=== PATIENT | male | born 1990 | race Caucasian/White ===

== ENCOUNTER → 2022-02-01 12:25 | Outpatient (BNVA) | payer OTHER, SELFPAY | PROVIDERS: PCP Internal Medicine; Referring Provider Internal Medicine; Visit Provider Physician Assistant Surgical | DX: Z13.89 Encounter for screening for other disorder (principal) ==

== ENCOUNTER → 2022-03-08 08:12 | Outpatient (BNVA) | payer OTHER, SELFPAY | PROVIDERS: PCP Internal Medicine; Visit Provider Dietitian, Registered | DX: E66.01 Morbid (severe) obesity due to excess calories (principal); E11.9 Type 2 diabetes mellitus without complications | CPT/HCPCS: 97802 ==

== ENCOUNTER → 2022-03-14 08:05 | Outpatient (BNVA) | payer OTHER, SELFPAY | PROVIDERS: PCP Internal Medicine; Referring Provider Physician Assistant Surgical; Visit Provider Dietitian, Registered | DX: Z13.89 Encounter for screening for other disorder (principal) ==

== ENCOUNTER 2022-04-01 09:05 | Outpatient (REF) | payer OTHER, SELFPAY ==
--- NOTE | ~2022-04-01 | FL_ITS ---
EXAMINATION: XR FLUOROSCOPY UPPER GI WITH AIR CLINICAL INFORMATION: Morbid/severe obesity due to excess calories. COMPARISON: None TECHNIQUE: Routine upper GI air-contrast study was performed in upright and lying position. FINDINGS: Following oral administration of thick barium and effervescent granules there is normal propagation bolus from the oral cavity through the pharynx, esophagus into stomach without any evidence of obstruction, narrowing or stricture. On placing patient supine and prone lying the course, caliber and peristalsis of the stomach and the duodenal bulb and this CT is normal. The mucosal pattern of the esophagus, stomach and the duodenum is normal. FLUOROSCOPY TIME: 1.4 minutes DOSE AREA PRODUCT: 34.798 uGy-m2 (microgray-meter squared) FL/FL upper GI w air IMPRESSION: Unremarkable upper GI air-contrast study.
--- NOTE | ~2022-04-01 | US_ITS ---
EXAMINATION: US COMPLETE ABDOMEN WITH LIVER ELASTOGRAPHY CLINICAL INFORMATION: Morbid obesity COMPARISON: None. TECHNIQUE: Real-time imaging of the abdominal viscera. Noninvasive ultrasound liver fibrosis assessment is performed using Virgie ElastPQ point quantification shear wave elastography (2D-SWE) with a C5-2 MHz transducer. Multiple elastography samples are obtained. FINDINGS: PANCREAS: Normal. The visualized pancreatic head and body are normal in appearance. The remainder of the pancreas is obscured from visualization by the overlying bowel gas. ABDOMINAL AORTA: The proximal, middle, and distal aortic segments are normal in caliber. INFERIOR VENA CAVA: Visualized portions are normal. LIVER: Normal. The liver demonstrates normal size and contour. Diffuse increased hepatic echogenicity.. No focal lesion or intrahepatic biliary duct dilatation. The right lobe measures 19.6 cm in length. The left lobe measures 12.8 cm in length. Portal flow is towards the liver (hepatopetal). Shear wave liver elastography median stiffness is 1.27 m/s (reference: normal median stiffness is 1.3 m/s or less). IQR/median stiffness to assess sampling precision is 0.08 (reference: good quality data set is IQR/median stiffness of 0.15 or less). GALLBLADDER: Normal. The gallbladder is physiologically distended without evidence of stones, sludge, polyps, wall thickening or pericholecystic fluid. COMMON BILE DUCT: Normal in caliber measuring 0.3 cm in diameter. RIGHT KIDNEY: Normal. No hydronephrosis. No renal calculi or focal parenchymal lesions. The kidney measures 11.5 cm in maximum dimension. LEFT KIDNEY: Normal. No hydronephrosis. No renal calculi or focal parenchymal lesions. The kidney measures 13.4 cm in maximum dimension. SPLEEN: Normal. The spleen measures 12.3 cm in maximum dimension. FREE FLUID: None. US/US abdomen comp w elastography IMPRESSION: 1. Diffuse hepatic steatosis. 2. Liver elastography: Measurements are consistent with a high probability of normal liver stiffness. REFERENCE: Society of Radiologists in Ultrasound Liver Stiffness Thresholds (2020): LIVER STIFFNESS THRESHOLDS: *Liver Stiffness equal or less than 1.3 m/s: High probability of being normal. *Liver Stiffness less than 1.7 m/s: In the absence of other known clinical signs, rules out compensated advanced chronic liver disease. *Liver Stiffness 1.7-2.1 m/s: Suggestive of compensated advanced chronic liver disease but need further test for confirmation. *Liver Stiffness over 2.1 m/s: Rules in compensated advanced chronic liver disease. *Liver Stiffness over 2.4 m/s: Suggestive of clinically significant portal hypertension. QUALITY OF DATA SET: *IQR/Median value equal or less than 0.15 implies a quality data set. *IQR/Median value over 0.15 implies a poor quality data set. SIGNIFICANT CHANGE FROM PRIOR EXAM: Significant change if liver stiffness measurement is 10% or greater from prior exam. OTHER CONSIDERATIONS: The stage of liver fibrosis may be overestimated in the setting of acute hepatitis, liver inflammation, elevated liver function tests, hepatic vascular congestion, obstructive cholestasis, non-fasting state, and infiltrative diseases such as amyloidosis and lymphoma. In some patients with NAFLD, the liver stiffness thresholds for compensated advanced chronic liver disease may be lower. In causes other than viral hepatitis and NAFLD, liver stiffness thresholds are not well established.
--- NOTE | ~2022-04-01 | XR_ITS ---
EXAMINATION: XR CHEST CLINICAL INFORMATION: Morbid obesity COMPARISON: None TECHNIQUE: 2 views of the chest were obtained. FINDINGS: Normal symmetric lung volumes. No parenchymal consolidation. No pleural effusion. No pneumothorax. Cardiomediastinal silhouette and pulmonary vascularity are within normal limits. No acute osseous abnormalities. XR/XR chest 2V IMPRESSION: Unremarkable examination.
--- NOTE | 2022-04-01 10:10 | ECG_ITS ---
Test Reason : e66.01 Blood Pressure : / mmHG Vent. Rate : 066 BPM Atrial Rate : 066 BPM P-R Int : 180 ms QRS Dur : 102 ms QT Int : 390 ms P-R-T Axes : 036 010 037 degrees QTc Int : 408 ms Normal sinus rhythm Normal ECG No previous ECGs available Referred By: Hever Toledo Electronically Signed By:NICOLA LOBATO
== END 2022-04-01 09:06 | disposition home or self-care (01) ==
LOC: HO.US 09:05
PROVIDERS: PCP Nurse Practitioner Family; Visit Provider Physician Assistant Surgical
DX: Z01.818 Encounter for other preprocedural examination (principal); E66.01 Morbid (severe) obesity due to excess calories; K21.9 Gastro-esophageal reflux disease without esophagitis
CPT/HCPCS: 71046; 74246; 76705; 76981; 93005

== ENCOUNTER → 2022-09-03 09:00 | Outpatient (BNVA) | payer OTHER, SELFPAY | PROVIDERS: PCP Internal Medicine; Referring Provider Physician Assistant; Visit Provider Counselor Mental Health | DX: F43.20 Adjustment disorder, unspecified (principal); E66.01 Morbid (severe) obesity due to excess calories | CPT/HCPCS: 90791 ==

== ENCOUNTER → 2022-09-13 09:21 | Outpatient (BNVA) | payer OTHER, SELFPAY | PROVIDERS: PCP Internal Medicine; Referring Provider Physician Assistant; Visit Provider Dietitian, Registered | DX: E66.01 Morbid (severe) obesity due to excess calories (principal) | CPT/HCPCS: 97803 ==

== ENCOUNTER 2022-09-14 09:22 | Outpatient (REF) | payer OTHER, SELFPAY ==
[2022-09-14 09:44] LABS: MANUAL DIFF FLAG NO
[2022-09-14 10:37] LABS: Basophils Percent Auto 0.6 % (0-2); Eosinophils Absolute Auto 0.1 X10*3/uL (0.0-0.4); Eosinophils Percent Auto 2.1 % (0-4); Hematocrit 45.2 % (42.0-52.0); Hemoglobin 15.1 g/dl (14.0-18.0); Imm Gran Abs Auto 0.01 X10*3/uL (0.00-0.03); Imm Gran Pct Auto 0.2 % (0.0-0.4); Lymphocytes Absolute Auto 1.7 X10*3/uL (1.2-4.9); Lymphocytes Percent Auto 32.1 % (20-40); Mean Corpuscular HGB Conc 33.4 g/dl (31.0-36.0); Mean Corpuscular Volume 83.9 fL (80.0-98.0); Mean Platelet Volume 9.8 fL (9.4-12.4); Monocytes Absolute Auto 0.4 X10*3/uL (0.1-1.2); Platelet Count 312 X10*3/uL (160-400); Red Blood Count 5.39 X10*6/uL (4.60-5.80); Red Cell Distribution Width 12.6 % (11.0-16.0); White Blood Count 5.2 X10*3/uL (4.8-10.8)
[2022-09-14 10:44] LABS: Estimated Average Glucose 111 mg/dL; Hemoglobin A1C 133.7119 umol/L; Hemoglobin A1c % 5.5 %
[2022-09-14 11:09] LABS: Alanine Aminotransferase 57 U/L (0-40); Albumin Level 4.9 g/dL (3.5-5.0); Alkaline Phosphatase 77 U/L (39-117); Anion Gap 19 (12-20); Aspartate Amino Transferase 41 U/L (5-37); Bilirubin Total 0.6 mg/dL (0.0-1.0); Blood Urea Nitrogen 13 mg/dL (9-16); C Reactive Protein 0.52 mg/dL (< or = 0.50); Calcium 10.1 mg/dL (8.4-10.2); Carbon Dioxide 22 mmol/L (22-29); Chloride 103 mmol/L (96-108); Cholesterol 234 mg/dL; Estimated Glomerular Filt Rate > 60; Glucose Random 98 mg/dL (60-115); HDL Cholesterol 35 mg/dL; Iron 105 mcg/dL (45-160); LDL Cholesterol Calculated 173 mg/dl; Percent Iron Saturation 24 % (15-50); Potassium 4.6 mmol/L (3.3-5.1); Sodium 139 mmol/L (135-145); Total Iron Binding Capacity 441 mcg/dL (228-428); Total Protein 8.4 g/dL (6.5-8.0); Triglycerides 134 mg/dL; Unsaturated Iron Binding 336 ug/dL
[2022-09-14 11:33] LABS: Ferritin 222 ng/mL (20-250); TSH reflex Free T4 3.79 uIU/mL (0.32-4.0); Vitamin D 25-OH Total 11.8 ng/mL (>30)
[2022-09-14 11:41] LABS: Vitamin B12 521 pg/mL (200-900)
[2022-09-17 11:41] LABS: PTHI 34 pg/mL (16-77)
[2022-09-18 15:52] LABS: Zinc 85 mcg/dL (60-130)
[2022-09-19 17:02] LABS: Vitamin A 50 mcg/dL (38-98)
[2022-09-21 03:36] LABS: Vitamin B1 7 nmol/L (8-30)
== END 2022-09-14 09:23 | disposition home or self-care (01) ==
LOC: HO.LAB 09:22
PROVIDERS: Visit Provider Physician Assistant Surgical
DX: E66.01 Morbid (severe) obesity due to excess calories (principal)
CPT/HCPCS: 36415; 80053; 80061; 82306; 82607; 82728; 82746; 83036; 83540; 83970; 84425; 84443; 84590; 84630; 85025; 86140

== ENCOUNTER 2022-09-20 15:58 | Outpatient (REF) | payer OTHER, SELFPAY ==
[2022-09-21 15:15] LABS: H Pylori Breath Test Negative (Negative)
== END 2022-09-20 15:59 | disposition home or self-care (01) ==
LOC: HO.LNP 15:58
PROVIDERS: Visit Provider Physician Assistant Surgical
DX: E66.01 Morbid (severe) obesity due to excess calories (principal); Z11.0 Encounter for screening for intestinal infectious diseases
CPT/HCPCS: 83013

== ENCOUNTER 2022-12-09 07:57 | Outpatient (REF) | payer OTHER, SELFPAY ==
[2022-12-09 10:42] LABS: Cholesterol 199 mg/dL; HDL Cholesterol 35 mg/dL; LDL Cholesterol Calculated 126 mg/dl; Triglycerides 194 mg/dL
[2022-12-09 10:49] LABS: Syphilis Screen Nonreactive (Nonreactive)
[2022-12-09 10:50] LABS: HIV AB/AG Nonreactive (Nonreactive); HIV Num 1 0.05 S/CO (0.00-0.99); Hepatitis B Surface Antigen Negative (Negative); ~Hepatitis C Antibody Nonreactive (Nonreactive)
== END 2022-12-09 07:58 | disposition home or self-care (01) ==
LOC: HO.LAB 07:57
PROVIDERS: Absent Provider Advanced Practice Midwife; PCP Internal Medicine; Visit Provider Physician Assistant Medical
DX: Z11.9 Encounter for screening for infectious and parasitic diseases, unspecified (principal); Z11.4 Encounter for screening for human immunodeficiency virus [HIV]; E78.5 Hyperlipidemia, unspecified
CPT/HCPCS: 36415; 80061; 86780; 86803; 87340; 87389

== ENCOUNTER → 2023-01-31 11:12 | Outpatient (BNVA) | payer OTHER, SELFPAY | PROVIDERS: PCP Internal Medicine; Visit Provider Physician Assistant | DX: Z13.89 Encounter for screening for other disorder (principal) ==

== ENCOUNTER → 2023-02-21 09:00 | Outpatient (BNVA) | payer OTHER, SELFPAY | PROVIDERS: PCP Internal Medicine; Visit Provider Physician Assistant | DX: Z13.89 Encounter for screening for other disorder (principal) ==

== ENCOUNTER 2023-09-09 22:16 | Emergency (ER) | payer OTHER, SELFPAY ==
--- NOTE | ~2023-09-09 | US_ITS ---
EXAMINATION: US ABDOMEN LIMITED CLINICAL INFORMATION: Right upper quadrant pain. COMPARISON: Ultrasound exam from 04/01/2022 TECHNIQUE: Real-time imaging of the right upper quadrant abdominal viscera. FINDINGS: PANCREAS: Normal. LIVER: Liver has normal size and contour. The liver parenchyma is chronically hyperechoic, similar compared to 04/01/2022. No evidence of focal liver lesion or intrahepatic duct dilatation. GALLBLADDER: The gallbladder is collapsed. The evaluation of the gallbladder is extremely limited. The wall of the gallbladder is 0.2 cm thick. No pericholecystic fluid. The lumen of the gallbladder is not adequately evaluated. This examination would not be able to exclude any cholelithiasis. COMMON BILE DUCT: Normal in caliber measuring 0.4 cm in diameter. RIGHT KIDNEY: Normal. No hydronephrosis. No renal calculi or focal parenchymal lesions. The kidney measures 13.5 cm in maximum dimension. FREE FLUID: None. US/US abdomen limited IMPRESSION: * No acute sonographic abnormalities. * Liver is diffusely hyperechoic, suggestive of steatosis, similar compared to 04/01/2022. * The gallbladder is nearly completely collapsed and poorly evaluated. There is no evidence of gallbladder wall thickening or pericholecystic fluid. Unable to exclude any cholelithiasis on this limited evaluation. However, no evidence of biliary tract obstruction.
[2023-09-09 22:22] VITALS: BP 149/67; PULSE 79; RESP 20; TEMP 36.6; O2SAT 98; BMI 56.1
[2023-09-09] MEDS: Ondansetron ODT 4 MG TAB.RAPDIS TRANSLINGU (22:26)
[2023-09-09 23:50] LABS: MANUAL DIFF FLAG NO
[2023-09-09 23:55] LABS: Basophils Absolute Auto 0.1 X10*3/uL (0.0-0.2); Basophils Percent Auto 0.6 % (0-2); Eosinophils Absolute Auto 0.2 X10*3/uL (0.0-0.4); Hematocrit 40.2 % (42.0-52.0); Hemoglobin 13.8 g/dl (14.0-18.0); Imm Gran Abs Auto 0.02 X10*3/uL (0.00-0.03); Imm Gran Pct Auto 0.2 % (0.0-0.4); Lymphocytes Absolute Auto 1.8 X10*3/uL (1.2-4.9); Lymphocytes Percent Auto 22.3 % (20-40); Mean Corpuscular HGB Conc 34.3 g/dl (31.0-36.0); Mean Corpuscular Hemoglobin 28.5 pg (27.0-33.0); Mean Corpuscular Volume 83.1 fL (80.0-98.0); Mean Platelet Volume 9.9 fL (9.4-12.4); Monocytes Absolute Auto 0.7 X10*3/uL (0.1-1.2); Neutrophils Absolute Auto 5.5 x10*3/uL (2.0-8.3); Neutrophils Percent Auto 66.9 % (45-73); Platelet Count 257 X10*3/uL (160-400); Red Blood Count 4.84 X10*6/uL (4.60-5.80); Red Cell Distribution Width 12.3 % (11.0-16.0); White Blood Count 8.2 X10*3/uL (4.8-10.8)
[2023-09-10 00:26] LABS: Alanine Aminotransferase 99 U/L (0-40); Albumin Level 4.2 g/dL (3.5-5.0); Alkaline Phosphatase 77 U/L (39-117); Anion Gap 15 (12-20); Aspartate Amino Transferase 117 U/L (5-37); Bilirubin Direct 0.2 mg/dL (0.0-0.5); Bilirubin Total 0.5 mg/dL (0.0-1.0); Blood Urea Nitrogen 14 mg/dL (9-16); Calcium 9.6 mg/dL (8.4-10.2); Carbon Dioxide 21 mmol/L (22-29); Chloride 107 mmol/L (96-108); Creatinine Clr Calc Pharmacy 163.7; Estimated Glomerular Filt Rate > 60; Glucose Random 111 mg/dL (60-115); Potassium 4.1 mmol/L (3.3-5.1); Sodium 139 mmol/L (135-145); Total Protein 7.6 g/dL (6.5-8.0)
[2023-09-10 04:01] VITALS: BP 137/99; PULSE 66; RESP 18; TEMP 36.8; O2SAT 96
--- NOTE | 2023-09-10 04:10 | PC.NURSE ---
Pt ambulated to stretcher with a steady gait. Pt AOx3, reporting 6/10 intermittent sharp RUQ abdominal pain that radiates to the right shoulder [id number]. Pt reports resolved Nausea after taking zofran, frequent diarrhea, denies vomiting. Pt reports having some chest tightness that has been resolved as of now. Pt reports increase irritation with fried food. Hypoactive bowel sounds noted, tender on palpation. Pt is calm and cooperative, waiting to see provider, aware of plan.
[2023-09-10 06:30] LABS: Lipase 76 U/L (8-78)
[2023-09-10 06:41] VITALS: BP 133/79; PULSE 87; RESP 16; TEMP 36.7; O2SAT 98
--- NOTE | 2023-09-10 07:21 | ED.ABDPAIN ---
HPI - Abdominal Pain General Chief Complaint: Abdominal Pain Stated Complaint: sharp pain shoulder to chest, nausea Time Seen by Provider: 09/10/23 06:12 Source: patient Mode of arrival: ambulatory History of Present Illness HPI narrative: 33-year-old male who reports that he has had intermittent right upper quadrant pain over the past month but states that last night after eating [facility] he began experiencing the pain once again with was associated with nausea but no vomiting and he denies any fevers or chills but states he is still having the pain and has had some mild diarrhea. Related Data Home Medications Medication Instructions Recorded Confirmed albuterol sulfate 90 mcg/actuation 1 puff inhalation Q4H 02/01/22 02/21/23 aerosol inhaler Previous Rx's Medication Instructions Recorded thiamine HCl (vitamin B1) 50 mg 50 mg PO DAILY #30 tabs 09/23/22 tablet cholecalciferol (vitamin D3) 125 125 mcg PO DAILY #90 caps 04/02/23 mcg (5,000 unit) capsule Allergies Allergy/AdvReac Type Severity Reaction Status Date / Time No Known Allergies Allergy Verified 10/14/22 10:09 Review of Systems Review of Systems Pertinent positives and negatives as stated in HPI PMFSH Past Medical History Source: nursing notes reviewed Surgical History No pertinent past surgical history Family History Family History Mother Breast cancer Father No problems noted. Brother No problems noted. Sister No problems noted. Sister No problems noted. Sister No problems noted. Social History Social History Alcohol intake: never Patient Tobacco Use Status: Never used Tobacco Smoked in Last 30 Days: No Use of substances other than those prescribed or required for medical reasons: No Advance Directives: No Advance Directives Information Provided: Yes Physical Exam ED Vital Signs: Vital Signs - 24 hr 09/09/23 22:22 09/10/23 04:01 09/10/23 06:41 Temperature 97.8 F 98.2 F 98.1 F Pulse Rate 79 66 87 Respiratory Rate 20 18 16 Blood Pressure 149/67 H 137/99 H 133/79 Pulse Oximetry 98 96 98 Oxygen Delivery Method Room Air Room Air Room Air BMI result Body Mass Index 56.1 VITAL SIGNS: Reviewed. GENERAL: Elevated BMI, Well developed, well nourished, in no acute distress. HEAD: Normocephalic/atraumatic EYES: PERRLA, EOMI EARS: Ext canals without abnormality NOSE: Nares patent bilateral OROPHARYNX: no oral lesions noted, posterior pharynx clear NECK: Supple, no adenopathy LUNGS: Normal breath sounds. No adventitious sounds or accessory muscle use. SpO2<98> CARDIOVASCULAR: Regular rate and rhythm without noted murmurs ABDOMEN: Soft, right upper quadrant pain without rebound, Crystal's positive, non-distended with bowel sounds. MUSCULOSKELETAL: No tenderness, deformities, or effusions noted on gross inspection. EXTREMITIES: No cyanosis, clubbing or edema. SKIN: Inspection of the skin reveals no rashes NEUROLOGIC: Alert and oriented x 4. Strength and sensation to light touch were grossly intact x 4. Medical Decision Making Medical Decision Making [facility] Narrative: 33-year-old male with history and clinical presentation, DDX: Acute cholecystitis, biliary colic, pancreatitis, gastritis, musculoskeletal pain. I reviewed all investigations and hematologic indices are negative for leukocytosis or left shift, there is no thrombocytopenia and there is a mild normocytic anemia without history or presentation to suggest active bleeding. Chemistry indices are grossly within normal limits without SUREKHA and there is no evidence of electrolyte derangements and there is evidence transaminitis. IV was placed, patient received antiemetics as well as pain medication. Signed out to Dr White: - ultrasound to rule out cholecystitis Differential Diagnosis Differential Diagnoses: The differential diagnosis associated with the presentation includes Please see the discussion above Admission/Observation Consideration of admission/observation: Escalation of care including admission/observation considered Please see the discussion above Lab Data [facility] Lab Attestation statement: I reviewed the patient's lab results. Please see the discussion above 09/09/23 23:46 09/09/23 23:46 Labs: Lab Results 09/09/23 Range/Units 23:46 WBC 8.2 (4.8-10.8) X10*3/uL RBC 4.84 (4.60-5.80) X10*6/uL Hgb 13.8 L (14.0-18.0) g/dl Hct 40.2 L (42.0-52.0) % MCV 83.1 (80.0-98.0) fL MCH 28.5 (27.0-33.0) pg MCHC 34.3 (31.0-36.0) g/dl RDW 12.3 (11.0-16.0) % Plt Count 257 (160-400) X10*3/uL MPV 9.9 (9.4-12.4) fL Immature Gran % (Auto) 0.2 (0.0-0.4) % Neut % (Auto) 66.9 (45-73) % Lymph % (Auto) 22.3 (20-40) % [place] % (Auto) 8.0 (2-11) % Eos % (Auto) 2.0 (0-4) % Baso % (Auto) 0.6 (0-2) % Lymph # (Auto) 1.8 (1.2-4.9) X10*3/uL [place] # (Auto) 0.7 (0.1-1.2) X10*3/uL Eos # (Auto) 0.2 (0.0-0.4) X10*3/uL Baso # (Auto) 0.1 (0.0-0.2) X10*3/uL Abs Immat Gran (auto) 0.02 (0.00-0.03) X10*3/uL Absolute Neuts (auto) 5.5 (2.0-8.3) x10*3/uL Absolute Nucleated RBC 0.000 (0.0-0.012) X10*3/uL Nucleated RBC % (auto) 0.0 (0.0-0.2) /100WBC Sodium 139 (135-145) mmol/L Potassium 4.1 (3.3-5.1) mmol/L Chloride 107 (96-108) mmol/L Carbon Dioxide 21 L (22-29) mmol/L Anion Gap 15 (12-20) BUN 14 (9-16) mg/dL Creatinine 1.02 (0.5-1.4) mg/dL Estim Creat Clear Calc 163.7 Estimated GFR > 60 Random Glucose 111 (60-115) mg/dL Calcium 9.6 (8.4-10.2) mg/dL Total Bilirubin 0.5 (0.0-1.0) mg/dL Direct Bilirubin 0.2 (0.0-0.5) mg/dL AST 117 H (5-37) U/L ALT 99 H (0-40) U/L Alkaline Phosphatase 77 (39-117) U/L Total Protein 7.6 (6.5-8.0) g/dL Albumin 4.2 (3.5-5.0) g/dL Lipase 76 (8-78) U/L Medications Administered Discontinued Medications Generic Name Dose Route Start Last Admin Trade Name Freq PRN Reason Stop Dose Admin Ondansetron HCl 4 mg 09/09/23 22:25 09/09/23 22:26 Ondansetron Odt 4 Mg Tab.Rapdis TRANSLINGU 09/09/23 22:26 4 mg ONCE ONE Administration Discharge Plan Discharge Clinical Impression: Abdominal pain, acute, right upper quadrant Patient Disposition: Still a Patient Prescriptions: No Action thiamine HCl (vitamin B1) 50 mg tablet 50 mg PO DAILY Qty: 30 5RF cholecalciferol (vitamin D3) 125 mcg (5,000 unit) capsule 125 mcg PO DAILY Qty: 90 1RF albuterol sulfate 90 mcg/actuation HFA aerosol inhaler 1 puff inhalation Q4H
[2023-09-10] MEDS: 0.9 % Sodium Chloride 1,000 ML 999 ML IV (07:41)
[2023-09-10] MEDS: Ketorolac Tromethamine 30 MG/ML VIAL 15 MG IVPUSH (07:41)
== END 2023-09-10 11:26 | disposition home or self-care (01) ==
PROVIDERS: Student in an Organized Health Care Education/Training Program; Emergency Provider Emergency Medicine
DX: R10.11 Right upper quadrant pain (principal); K76.0 Fatty (change of) liver, not elsewhere classified; E11.9 Type 2 diabetes mellitus without complications; E66.9 Obesity, unspecified; Z68.43 Body mass index [BMI] 50.0-59.9, adult; Z79.899 Other long term (current) drug therapy
CPT/HCPCS: 36415; 76705; 80048; 80076; 83690; 85025; 96361; 96374; 99284; 99285; J1885

== ENCOUNTER 2023-10-06 22:51 | Emergency (ER) | payer OTHER, SELFPAY ==
--- NOTE | ~2023-10-06 | CT_ITS ---
EXAMINATION: CT ABDOMEN AND PELVIS WITH CONTRAST CLINICAL INFORMATION: Right abdominal pain COMPARISON: None available. TECHNIQUE: Multidetector volumetric images were obtained from the superior aspect of the liver through the pubic symphysis following administration 100 mL of Omnipaque 350 intravenous contrast. Sagittal and coronal reformatted images were obtained on the technologist's workstation. Oral contrast: No This CT examination was performed using dose optimization techniques as appropriate, variously including the following: *Automated exposure control *Adjustment of mA and/or kV according to patient size (this includes techniques or standardized protocols for targeted exams where dose is matched to indication/reason for exam; i.e. extremities or head) *Use of iterative reconstruction technique DLP: 1934 mGy-cm FINDINGS: LUNG BASES: The visualized lung bases are unremarkable. LIVER, GALLBLADDER, AND BILIARY TREE: The liver is normal in size, shape, and attenuation. No focal hepatic lesion or biliary ductal dilatation is present. The gallbladder is unremarkable with no evidence of radiopaque gallstones, gallbladder wall thickening, or obvious pericholecystic inflammatory changes. PANCREAS: Unremarkable. SPLEEN: Unremarkable. ADRENAL GLANDS: Unremarkable. KIDNEYS AND URETERS: Bilateral nephrograms are symmetric. No hydronephrosis or obstructing calculus identified. Small hypodensity off the mid left kidney is too small to characterize. BLADDER: Unremarkable. GASTROINTESTINAL TRACT: No evidence of bowel obstruction or significant wall thickening. The appendix is unremarkable. No free fluid or free air is seen. ABDOMINAL WALL: No significant hernia is appreciated. LYMPH NODES: Normal. VASCULAR: Unremarkable. PELVIC VISCERA: Unremarkable. OSSEOUS STRUCTURES: Degenerative changes are noted in the spine. CT/CT abdomen pelvis w IV con IMPRESSION: No acute findings identified in the abdomen/pelvis.
[2023-10-06 22:55] VITALS: BP 181/108; PULSE 74; RESP 20; TEMP 36.4; O2SAT 97; BMI 55.8
[2023-10-06 23:15] LABS: Basophils Percent Auto 0.3 % (0-2); Eosinophils Absolute Auto 0.1 X10*3/uL (0.0-0.4); Eosinophils Percent Auto 1.4 % (0-4); Hematocrit 44.3 % (42.0-52.0); Imm Gran Abs Auto 0.02 X10*3/uL (0.00-0.03); Imm Gran Pct Auto 0.2 % (0.0-0.4); Lymphocytes Absolute Auto 2.2 X10*3/uL (1.2-4.9); Lymphocytes Percent Auto 25.5 % (20-40); MANUAL DIFF FLAG NO; Mean Corpuscular HGB Conc 33.9 g/dl (31.0-36.0); Mean Corpuscular Hemoglobin 28.5 pg (27.0-33.0); Mean Corpuscular Volume 84.1 fL (80.0-98.0); Monocytes Absolute Auto 0.6 X10*3/uL (0.1-1.2); Monocytes Percent Auto 6.6 % (2-11); Neutrophils Absolute Auto 5.7 x10*3/uL (2.0-8.3); Platelet Count 354 X10*3/uL (160-400); Red Blood Count 5.27 X10*6/uL (4.60-5.80); Red Cell Distribution Width 12.6 % (11.0-16.0); White Blood Count 8.7 X10*3/uL (4.8-10.8)
[2023-10-06 23:25] VITALS: BP 135/75; PULSE 66; RESP 19; TEMP 36.9; O2SAT 99
[2023-10-06 23:29] LABS: Alanine Aminotransferase 53 U/L (0-40); Albumin Level 4.6 g/dL (3.5-5.0); Alkaline Phosphatase 77 U/L (39-117); Anion Gap 13 (12-20); Aspartate Amino Transferase 28 U/L (5-37); Bilirubin Direct 0.1 mg/dL (0.0-0.5); Bilirubin Total 0.3 mg/dL (0.0-1.0); Blood Urea Nitrogen 11 mg/dL (9-16); Calcium 9.8 mg/dL (8.4-10.2); Carbon Dioxide 28 mmol/L (22-29); Chloride 103 mmol/L (96-108); Creatinine Clr Calc Pharmacy 171.6; Estimated Glomerular Filt Rate > 60; Glucose Random 123 mg/dL (60-115); Lipase 49 U/L (8-78); Sodium 140 mmol/L (135-145); Total Protein 8.4 g/dL (6.5-8.0)
--- NOTE | 2023-10-06 23:44 | ED_ITS ---
HPI - General Adult General Chief complaint: Abdominal Pain Stated complaint: abd pain vomiting Time Seen by Provider: 10/06/23 23:25 History of Present Illness HPI narrative: 33 yo Pt presents to ED with a cc of RUQ pain. Pt states he has had intermittent RUQ pain for the past 4mo. He notes that 4 weeks ago he presented to the ED for the same pain and an US of the gallbladder was unremarkable as gallbladder was collapsed. Pt states he is waiting to have a CT done. Notes that his current sx began at 0500 today and have been fairly constant since then. He describes the pain as 9/10, sharp, and non-radiating. He took acetaminophen at 1200 with no relief of pain. He notes associated nausea and vomiting all day with the last 2 episodes of emesis containing bright red blood. Notes that his temp was 99.5 F earlier in the day but denies chills. Related Data Home Medications Medication Instructions Recorded Confirmed albuterol sulfate 90 mcg/actuation 1 puff inhalation Q4H 02/01/22 02/21/23 aerosol inhaler Previous Rx's Medication Instructions Recorded thiamine HCl (vitamin B1) 50 mg 50 mg PO DAILY #30 tabs 09/23/22 tablet cholecalciferol (vitamin D3) 125 125 mcg PO DAILY #90 caps 04/02/23 mcg (5,000 unit) capsule ondansetron 4 mg disintegrating 4 mg PO Q8H PRN nausea and 10/07/23 tablet vomiting #20 tabs polyethylene glycol 3350 17 17 g PO DAILY PRN constipation 10/07/23 gram/dose oral powder (Miralax) #238 grams Allergies Allergy/AdvReac Type Severity Reaction Status Date / Time No Known Allergies Allergy Verified 10/14/22 10:09 Review of Systems 2 Constitutional: Constitutional: Denies chills, Reports fever(s), Denies headache(s) and Denies poor appetite Eyes: Eyes: Denies change in vision ENT: Denies dizziness and Denies headache(s) Cardiovascular: Cardiovascular: Denies chest pain and Reports dyspnea (notes SOB secondary to pain) Respiratory: Respiratory: Reports dyspnea (notes SOB secondary to pain) Gastrointestinal: Gastrointestinal: Reports constipation (last BM yesterday), Denies diarrhea, Reports nausea, Reports vomiting and Reports hematemesis (last 2 episodes of emesis) Genitourinary: Genitourinary: Denies dysuria Musculoskeletal: Musculoskeletal: Denies myalgias Neurologic: Denies dizziness and Denies headache(s) [facility] Past Medical History Surgical History No pertinent past surgical history Family History Family History Mother Breast cancer Father No problems noted. Brother No problems noted. Sister No problems noted. Sister No problems noted. Sister No problems noted. Social History Social History Alcohol intake: never Patient Tobacco Use Status: Never used Tobacco Smoked in Last 30 Days: No Use of substances other than those prescribed or required for medical reasons: No Advance Directives: No Advance Directives Information Provided: Yes Physical Exam ED Vital Signs: Vital Signs - 24 hr 10/06/23 22:55 10/06/23 23:25 Temperature 97.6 F 98.4 F Pulse Rate 74 66 Respiratory Rate 20 19 Blood Pressure 181/108 H 135/75 Pulse Oximetry 97 99 Oxygen Delivery Method Room Air Room Air BMI result Body Mass Index 55.8 Const General: cooperative, no acute distress and alert Orientation/consciousness: patient oriented x3 HENMT Head: Yes normal to inspection, Yes normocephalic and Yes atraumatic Ears: hearing grossly normal bilaterally General nose exam: Normal external nose present Face and sinus: Yes normal facial exam Eyes General: appearance normal, both eyes and all related structures Sclerae: sclerae normal Chest Chest palpation & inspection: normal inspection of the chest Resp Effort & Inspection: normal respiratory effort, able to speak in complete sentences and symmetric chest movement Auscultation: clear to auscultation bilaterally Cardio Rate: regular rate Rhythm: regular rhythm Heart sounds: S1 normal heart sound present and S2 normal heart sound present GI Inspection: Yes normal to inspection and Yes obesity Palpation (GI): Soft to palpation, Tenderness to palpation present (GI) in the RUQ (tenderness to light and deep palpation of RUQ), No hepatosplenomegaly present, no masses and No Rebound tenderness present Auscultation: normal bowel sounds Rectal Exam - Male: Yes deferred Neuro General: patient oriented x3 Motor exam (neuro): 5/5 motor strength present throughout Course Reevaluation(s) Reevaluation #1: Patient's pain resolved, he has not been vomiting. CT scan shows no acute finding. By my read it shows right-sided stool burden. Questionable gastroenteritis. This is all discussed with the patient, will send him home with Zoalexandro and Marcial. He has GI follow-up RD plan is he has a referral from here Time: 01:32 Medications Administered Discontinued Medications Generic Name Dose Route Start Last Admin Trade Name Yary PRN Reason Stop Dose Admin Sodium Chloride 1,000 mls @ 999 mls/hr 10/06/23 23:45 10/07/23 01:24 Ns IV 10/07/23 00:45 Infused .Q1H1M SERGEY Infusion Iohexol 100 ml 10/07/23 00:25 10/07/23 00:25 Iohexol 350 Mg/Ml 100 Ml Infus..Btl IV 10/07/23 00:26 100 ml ONCE ONE Administration Morphine Sulfate 4 mg 10/06/23 23:46 10/06/23 23:59 Morphine Sulfate 4 Mg/Ml Cartridge IVPUSH 10/06/23 23:47 4 mg ONCE ONE Administration Protocol Ondansetron HCl 4 mg 10/06/23 23:46 10/06/23 23:59 Ondansetron Hcl 4 Mg/2 Ml Vial IVPUSH 10/06/23 23:47 4 mg ONCE ONE Administration Medical Decision Making Medical Decision Making [facility] Narrative: 33-year-old male presents for evaluation of right upper abdominal pain. He is tender in the right upper and right lower quadrant. He seems most tender right upper quadrant. I reviewed his workup from his last visit. Today his labs are within normal limits, he has no leukocytosis, his LFTs within normal limits, he has no elevation of his bilirubin to suggest biliary obstruction or gallbladder disease. Given that he is waiting a CT scan of the abdomen pelvis, we will get this scan performed today to better evaluate the abdomen. I have a lower suspicion for acute cholecystitis/biliary obstruction Differential Diagnosis Differential Diagnoses: The differential diagnosis associated with the presentation includes (cholelithiasis, cholecystitis, gastroenteritis, biliary dyskinesia, acalculous cholecystitis, pancreatitis, gastritis) Admission/Observation Consideration of admission/observation: Escalation of care including admission/observation considered Severe abdominal pain however workup did not show any pathology requiring admission Lab Data [facility] Lab Attestation statement: I reviewed the patient's lab results. No leukocytosis. No significant anemia, normal platelet count. No electrolyte abnormalities. Normal LFTs. 10/06/23 23:10 10/06/23 23:10 Labs: Lab Results 10/06/23 Range/Units 23:10 WBC 8.7 (4.8-10.8) X10*3/uL RBC 5.27 (4.60-5.80) X10*6/uL Hgb 15.0 (14.0-18.0) g/dl Hct 44.3 (42.0-52.0) % MCV 84.1 (80.0-98.0) fL MCH 28.5 (27.0-33.0) pg MCHC 33.9 (31.0-36.0) g/dl RDW 12.6 (11.0-16.0) % Plt Count 354 D (160-400) X10*3/uL MPV 9.0 L (9.4-12.4) fL Immature Gran % (Auto) 0.2 (0.0-0.4) % Neut % (Auto) 66.0 (45-73) % Lymph % (Auto) 25.5 (20-40) % [place] % (Auto) 6.6 (2-11) % Eos % (Auto) 1.4 (0-4) % Baso % (Auto) 0.3 (0-2) % Lymph # (Auto) 2.2 (1.2-4.9) X10*3/uL [place] # (Auto) 0.6 (0.1-1.2) X10*3/uL Eos # (Auto) 0.1 (0.0-0.4) X10*3/uL Baso # (Auto) 0.0 (0.0-0.2) X10*3/uL Abs Immat Gran (auto) 0.02 (0.00-0.03) X10*3/uL Absolute Neuts (auto) 5.7 (2.0-8.3) x10*3/uL Absolute Nucleated RBC 0.000 (0.0-0.012) X10*3/uL Nucleated RBC % (auto) 0.0 (0.0-0.2) /100WBC Sodium 140 (135-145) mmol/L Potassium 4.0 (3.3-5.1) mmol/L Chloride 103 (96-108) mmol/L Carbon Dioxide 28 (22-29) mmol/L Anion Gap 13 (12-20) BUN 11 (9-16) mg/dL Creatinine 0.97 (0.5-1.4) mg/dL Estim Creat Clear Calc 171.6 Estimated GFR > 60 Random Glucose 123 H (60-115) mg/dL Calcium 9.8 (8.4-10.2) mg/dL Total Bilirubin 0.3 (0.0-1.0) mg/dL Direct Bilirubin 0.1 (0.0-0.5) mg/dL AST 28 (5-37) U/L ALT 53 H (0-40) U/L Alkaline Phosphatase 77 (39-117) U/L Total Protein 8.4 H (6.5-8.0) g/dL Albumin 4.6 (3.5-5.0) g/dL Lipase 49 (8-78) U/L Independent Interpretation I performed an independent interpretation of an: CT Scan (Right-sided stool burden, questionable gastroenteritis) Radiology Impression Discussion of test interpretation with radiology: I have reviewed the radiologist's reading. (No acute findings of the abdomen pelvis) Discharge Plan Discharge Clinical Impression: Abdominal pain Patient Disposition: Home, Self-Care Instructions: Abdominal Pain (ED) Additional Instructions: Use ibuprofen or Tylenol as needed for pain. Your workup in the emergency department today was reassuring. This includes all of your blood work. Your CT scan showed constipation to the right side of your abdomen Use Zofran as needed for nausea or vomiting Take MiraLax daily for constipation Increase fluid and fiber intake in your diet Follow-up with your primary doctor and GI as planned Prescriptions: New ondansetron 4 mg tablet,disintegrating 4 mg PO Q8H PRN (Reason: nausea and vomiting) Qty: 20 0RF polyethylene glycol 3350 [Miralax] 17 gram/dose powder 17 g PO DAILY PRN (Reason: constipation) Qty: 238 0RF No Action thiamine HCl (vitamin B1) 50 mg tablet 50 mg PO DAILY Qty: 30 5RF cholecalciferol (vitamin D3) 125 mcg (5,000 unit) capsule 125 mcg PO DAILY Qty: 90 1RF albuterol sulfate 90 mcg/actuation HFA aerosol inhaler 1 puff inhalation Q4H
[2023-10-06] MEDS: 0.9 % Sodium Chloride 1,000 ML 999 ML IV (23:58)
[2023-10-06] MEDS: ondansetron HCL 4 MG/2 ML VIAL IVPUSH (23:59)
[2023-10-06] MEDS: Morphine Sulfate 4 MG/ML CARTRIDGE IVPUSH (23:59)
[2023-10-07] MEDS: iohexoL 350 MG/ML 100 ML INFUS..BTL IV (00:25)
--- NOTE | 2023-10-07 01:25 | PC.NURSE ---
pt resting in bed awaiting test results.
--- NOTE | 2023-10-07 01:34 | PC.NURSE ---
provider into discuss plan of care, reviewed discharge instruction with pt. pt verbalized understanding.
[2023-10-07 01:36] VITALS: BP 126/61; PULSE 63; RESP 16; TEMP 36.8; O2SAT 97
--- NOTE | 2023-10-07 01:53 | PC.NURSE ---
Iv removed, pt ambulated with a steady gait.
== END 2023-10-07 01:55 | disposition home or self-care (01) ==
PROVIDERS: Emergency Provider Emergency Medicine Emergency Medical Services; PCP Physician Assistant Medical
DX: R10.11 Right upper quadrant pain (principal); K21.9 Gastro-esophageal reflux disease without esophagitis; E11.9 Type 2 diabetes mellitus without complications; E66.01 Morbid (severe) obesity due to excess calories; Z68.43 Body mass index [BMI] 50.0-59.9, adult; Z79.899 Other long term (current) drug therapy
CPT/HCPCS: 36415; 74177; 80048; 80076; 83690; 85025; 96361; 96374; 96375; 99284; J2270; J2405; Q9967

== ENCOUNTER 2023-11-13 12:46 | Outpatient (AMB) | payer OTHER, SELFPAY ==
--- NOTE | 2023-11-13 12:49 | MHC.OFFVIS ---
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 CC: Pains in the stomach - no constipation or diarrhea. RUQ pains. He is scheduled for his gall bladder to be out. Infant Caregiver Required: No Allergies No Known Allergies Allergy (Verified 11/13/23 12:54) Medication List - Last Reconciled 11/13/23 by Lara Madison PA-C albuterol sulfate 90 mcg/actuation 1 puff inhalation Q4H cholecalciferol (vitamin D3) 125 mcg PO DAILY dicyclomine 10 mg PO TID pantoprazole 40 mg PO DAILY 30 days polyethylene glycol 3350 (Miralax) 17 grams PO DAILY PRN HPI HPI Comments History of Present Illness Details A 33-year-old male seen in the ED last month RUQ pain-abdominal CT not showed no acute findings He had hida scan- seen by [facility]- having Claire- 11/24 He started with acid reflux However stool burden was noted he was recommended to use MiraLax as needed as well as Zofran for nausea vomiting-symptoms improved As he presents today Was with wt management- taking pantoprazole 40 mg- with good response has not taken since September- would not refill- sent to GI- No nausea, vomiting fever or chills. No hematemesis or hematochezia PFSH Surgical History No pertinent past surgical history Family History Mother Breast cancer Father No problems noted. Brother No problems noted. Sister No problems noted. Sister No problems noted. Sister No problems noted. Social History Alcohol intake: never Patient Tobacco Use Status: Never used Tobacco Review of Systems Const All systems reviewed & are unremarkable except as noted in HPI and below Card Denies chest pain and Denies dyspnea Resp Denies dyspnea GI Reports abdominal pain, Denies hematochezia, Reports heartburn, Reports nausea and Denies vomiting Physical Exam Vital Signs: Last Vital Signs Pulse 67 11/13/23 12:53 BP 133/66 11/13/23 12:53 BMI result Body Mass Index 56.0 Const General: cooperative, healthy appearing, comfortable and no acute distress Orientation/consciousness: patient oriented x3 Limitations: no limitations Eyes Sclerae: sclerae normal Resp Effort & Inspection: normal respiratory effort and able to speak in complete sentences Auscultation: clear to auscultation bilaterally, no rales, no rhonchi and no wheezes Cardio Rate: regular rate Rhythm: regular rhythm Heart sounds: S1 normal heart sound present and S2 normal heart sound present GI Palpation (GI): Soft to palpation, Tenderness to palpation present (GI) in the RUQ and no guarding Auscultation: normal bowel sounds Neuro General: patient oriented x3 Extrem General: Yes full ROM Psych Appearance: grossly normal and well kempt Speech and movement: Normal speech and movement present and Clear speech present Affect: normal affect Thought process: Normal thought process present Thought content: Normal thought content present Results Reviewed Results Reviewed: CT/CT abdomen pelvis w IV con IMPRESSION: No acute findings identified in the abdomen/pelvis. US/US abdomen limited IMPRESSION: * No acute sonographic abnormalities. * Liver is diffusely hyperechoic, suggestive of steatosis, similar compared to 04/01/2022. * The gallbladder is nearly completely collapsed and poorly evaluated. There is no evidence of gallbladder wall thickening or pericholecystic fluid. Unable to exclude any cholelithiasis on this limited evaluation. However, no evidence of biliary tract obstruction. Assessment & Plan Assessment & Plan (1) Referred by emergency department physician: Comment: ED with right upper quadrant pain, Code(s): Z76.89 - Persons encountering health services in other specified circumstances Plan: Abnormal HIDA seen by surgery scheduled for claire (2) Constipated: Comment: hfd miralax Code(s): K59.00 - Constipation, unspecified Plan Test for HP, if positive will treat Follow-up surgery Reflux precaution Pantoprazole HFD Orders: Orders H pylori Ag Stool 11/13/23 A04.8 - Other specified bacterial intestinal infections Medications: New pantoprazole 40 mg PO DAILY 30 days 30 tabs 11RF Patient Instructions: HP if positive will tx Pantoprazole 40mg- Avoid culprits HFD mialax- Pt to call after surgery-planned cholecystectomy 11/24/2022 Encouraged to call questions or concerns Coding Level of Care Code New Pt Level 3 (78361) Diagnoses Referred by emergency department physician Z76.89 Constipated K59.00 Time Spent (min) 30
[2023-11-13 12:53] VITALS: BP 133/66; PULSE 67; BMI 56.0
== END 2023-11-13 13:30 | disposition home or self-care (01) ==
PROVIDERS: PCP Physician Assistant Medical; Visit Provider Physician Assistant
DX: Z76.89 Persons encountering health services in other specified circumstances (principal); K59.00 Constipation, unspecified
CPT/HCPCS: 99203

== ENCOUNTER → 2023-11-13 12:46 | Outpatient (BNVA) | payer OTHER, SELFPAY | PROVIDERS: PCP Physician Assistant Medical; Visit Provider Physician Assistant ==

== ENCOUNTER 2023-11-21 15:13 | Outpatient (REF) | payer OTHER, SELFPAY | END 2023-11-21 15:14 | disposition home or self-care (01) | LOC: HO.LNP 15:13 | PROVIDERS: Visit Provider Physician Assistant | DX: A04.8 Other specified bacterial intestinal infections (principal) | CPT/HCPCS: 87338 ==

== ENCOUNTER 2024-01-10 10:58 | Outpatient (AMB) | payer OTHER, SELFPAY ==
--- NOTE | 2024-01-10 11:08 | AM.OFFWIN_ITS ---
Intake Vital Signs 01/10/24 11:09 Height 5 ft 9 in Weight 381 lb BMI 56.3 BP 130/90 H Blood Pressure Location Lt brachial Position Sitting Pulse 54 Pulse Source Pulse Oximeter Temp 98.1 F Temp Source Oral Pulse Oximetry (%) 98 Oxygen Delivery Method Room Air Intake Visit Reasons: EP short breath cough chest/head congestion Intake Note: Patient here for congestion, difficulty breathing, cough and headaches which has been present for about 1 week and 1/2. Has done several at home covid test which were all neg. Patient Tobacco Use Status: Never used Tobacco Allergies No Known Allergies Allergy (Verified 01/10/24 11:10) Do you need a note to return to daycare/school/sports/work: No HPI HPI Comments History of Present Illness Details Cold symptoms x 1 week No fevers + congestion, cough, sore throat No ear pain No ST now + facial pain He has tried Friday with Robitussin but switched to mucinex. no relief He denies sick contacts He is using albuterol nebulizer [facility] Surgical History No pertinent past surgical history Family History Mother Breast cancer Father No problems noted. Brother No problems noted. Sister No problems noted. Sister No problems noted. Sister No problems noted. Social History Alcohol intake: never Patient Tobacco Use Status: Never used Tobacco Review of Systems Const Denies chills and Denies fever(s) Eyes Denies blurry vision ENT Reports otalgia, Reports nasal congestion, Reports nasal discharge, Reports sinus pressure, Denies sore throat, Denies throat swelling and Denies tongue swelling Card Denies chest pain and Reports dyspnea Resp Reports chest congestion, Reports cough and Reports dyspnea Aller/Immun Denies throat swelling and Denies tongue swelling Physical Exam Vital Signs: Last Vital Signs Temp 98.1 F 01/10/24 11:09 Pulse 54 01/10/24 11:09 BP 130/90 H 01/10/24 11:09 Pulse Ox 98 01/10/24 11:09 Oxygen Delivery Method Room Air 01/10/24 11:09 BMI result Body Mass Index 56.3 General: Non-toxic, NAD. Speaking full sentences. Skin: Warm dry throughout Eye: EOMI HENT: +rhinorrhea and maxillary sinus tenderness Airway patent. Uvula midline. No pharyngeal erythema or edema. 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 Bilateral canals clear. R TM + erythematous without bulge or perforation. + fluid bilaterally. L TM non-erythematous, non-bulging. No TM perforation or hemo tympanum Respiratory: CTA bilaterally. No wheezes, rales or rhonchi Cardiac: RRR. No murmur MSK: Full ROM extremities. Neurology: A/O. No aphasia or facial droop. Gait without abnormality Psych: Good mood and affect Assessment & Plan Assessment & Plan (1) Sinusitis: Code(s): J32.9 - Chronic sinusitis, unspecified Qualifiers: Sinusitis location: maxillary Chronicity: acute Recurrence: non- recurrent Qualified Code(s): J01.00 - Acute maxillary sinusitis, unspecified Plan: Patient seen and evaluated. Augmentin with food Discussed warm compress face F/U with PCP Patient gave verbal understanding and had no additional questions or concerns at time of discharge All questions answered Medications: New amoxicillin-pot clavulanate 875-125 mg 1 tab PO BID 14 tabs 0RF Coding Level of Care Code Est Pt Level 3 (52468) Diagnoses Acute non-recurrent maxillary sinusitis J01.00 Sinusitis location: maxillary Chronicity: acute Recurrence: non-recurrent
[2024-01-10 11:09] VITALS: BP 130/90; PULSE 54; TEMP 36.7; O2SAT 98; BMI 56.3
== END 2024-01-10 11:37 | disposition home or self-care (01) ==
PROVIDERS: PCP Physician Assistant Medical; Visit Provider Physician Assistant
DX: J01.00 Acute maxillary sinusitis, unspecified (principal)
CPT/HCPCS: 99051; 99213